=== PATIENT | female | born 1940 | race Caucasian/White ===

== ENCOUNTER 2016-12-14 12:30 | Emergency (ER) | payer OTHER, BC ==
[~2016-12-14] VITALS: Ht 152.4 cm; Wt 78.7 kg
[~2016-12-14 12:30] MED LIST: ACETAMINOPHEN325 M1 PO; ADULT LOW DOSE81 M1 PO; AFRIN15 ML BOTH NARES; ASPIR-LOW81 MG PO; B-COMPLEX-VITA1 EACH PO; BUSPAR5 MG PO; BUSPIRONE HCL5 MG PO; BYSTOLIC10 MG PO; CALCITRIOL0.5 MCG PO; CALCIUM ACETAT667 M2 PO; CALCIUM ACETAT667 MG PO; CALCIUM ACETAT668 MG PO; CLONIDINE HCL0.1 MG PO; CLOPIDOGREL75 MG PO; COLACE100 MG PO; DOCUSATE SODIU100 MG PO; DOXAZOSIN MESYLA1 MG PO; DOXYCYCLINE HY100 MG PO; FOLIC ACID1 MG PO; FOLVITE1 MG PO; KEFLEX250 MG PO; LANTUS 3 M100 UNITS1 SC; LANTUS 3 M100 UNITS1 SQ; LEVEMIR FL100 UNITS/ SC; LEVOTHYROXINE100 MCG PO; LEVOTHYROXINE150 MCG PO; LEVOXYL150 MCG PO; LISINOPRIL2.5 MG PO; LISINOPRIL5 MG PO; LO-DOSE ASPIRIN81 M1 PO; LOPRESSOR25 MG PO; LORAZEPAM0.5 MG PO; METOPROLOL TART25 MG PO; MIRALAX17 GM PO; MOTRIN600 MG PO; NITROSTAT0.4 MG SL; NORVASC10 MG PO; NOVOLOG PE100 UNITS/ SC; NOVOLOG PE100 UNITS/ SQ; OMEPRAZOLE20 MG PO; OXYCODONE-ACET1 EACH PO; PERCOCET 5/31 TABLET PO; PHOSLO667 M1 PO; PLAVIX75 MG PO; POLYETHYLENE GL17 GM PO; PRAVACHOL40 MG PO; PRAVASTATIN SOD40 MG PO; PROCRIT2000 UNIT/ IV; PROPOXYPHENE1 TABLET PO; PROSOURCE275 GM PO; RENA-VITE RX T1 EACH PO; RENVELA800 MG PO; SIMVASTATIN20 MG PO; ST. JOSEPH ASPI81 MG PO; SYNTHROID150 MCG PO; TRAMADOL HCL50 MG PO; TRAZODONE HCL50 MG PO; TRICOR48 MG PO; TYLENOL EXTRA500 MG PO; TYLENOL REGULA325 MG PO; TYLENOL WITH C1 EACH PO; VITAMIN D2000 UNIT PO; VITAMIN D31000 UNIT PO; ZESTRIL,PRINIVI40 MG PO; ZOCOR20 MG PO; [UNRECOGNIZED DRUG - CODE] PO
[2016-12-14 13:41] LABS: BASOPHIL COUNT 0.1 K/uL (0-0.1); EOSINOPHIL (%) 0.9 % (0-5); EOSINOPHIL COUNT 0.1 K/uL (0-0.3); IMMATURE GRANULOCYTE (%) 0.5 % (0.0-0.7); INSTRUMENT ABS NEUTROPHIL CT 4.3 K/uL; MCH 31.4 PG (29.0-34.0); MCHC 32.6 G/DL (30.0-36.0); MEAN PLAT.VOLUME 10.1 uM^3 (9.5-12.4); MONOCYTE COUNT 0.3 K/uL (0-0.8); NEUTROPHIL (%) 75.8 % (45-76); NEUTROPHIL COUNT 4.3 K/uL (1.8-6.4); PLATELET COUNT 98 K/uL (156-360); RBC DIS.WIDTH-CV 14.8 % (11.8-14.6); RBC DIS.WIDTH-SD 51.8 % (39-53); RED BLOOD COUNT 3.54 M/uL (3.80-5.20); WHITE BLOOD COUNT 5.6 K/uL (4.1-10.2)
[2016-12-14 13:49] LABS: CHLORIDE 98 mEq/L (99-109); POTASSIUM 3.9 mEq/L (3.7-5.4); SODIUM 137 mEq/L (136-147)
[2016-12-14 13:50] LABS: PROTHROMBIN TIME 10.4 (9.2-11.2); PTT 25.3 (25-32)
[2016-12-14 13:51] LABS: GLUCOSE 294 mg/dL (70-99)
[2016-12-14 13:52] LABS: ANION GAP 17 MEQ/L (2-14)
[2016-12-14 13:55] LABS: GFR ESTIMATE (CALCULATED) 6 mL/min/
[2016-12-14 13:56] LABS: UREA NITROGEN (BUN) 35 mg/dL (9-23)
[2016-12-14 14:02] LABS: TROP-I INTERPRETATION NEGATIVE; TROPONIN-I 0.11 ng/mL (0.0-0.30)
[2016-12-14 17:21] VITALS: BP 170/86
== END 2016-12-14 17:22 | disposition left against medical advice (07) ==
LOC: EME 12:30
PROVIDERS: Emergency Medicine
DX: R42 Dizziness and giddiness (principal); I12.9 Hypertensive chronic kidney disease with stage 1 through stage 4 chronic kidney disease, or unspecified chronic kidney disease; N18.9 Chronic kidney disease, unspecified; Z99.2 Dependence on renal dialysis; E11.22 Type 2 diabetes mellitus with diabetic chronic kidney disease; R55 Syncope and collapse; I50.9 Heart failure, unspecified; I25.2 Old myocardial infarction; G70.00 Myasthenia gravis without (acute) exacerbation; Z79.4 Long term (current) use of insulin; Z95.0 Presence of cardiac pacemaker; Z95.1 Presence of aortocoronary bypass graft; Z95.2 Presence of prosthetic heart valve; Z95.5 Presence of coronary angioplasty implant and graft
CPT/HCPCS: 71010; 80048; 84484; 85025; 85610; 85730; 93005; 99281; 99284; J2405

== ENCOUNTER 2016-12-29 10:24 | Emergency (ER) | payer OTHER, BC ==
[~2016-12-29] VITALS: Ht 152.4 cm; Wt 77.1 kg
[2016-12-29 11:19] LABS: EOSINOPHIL (%) 1.2 % (0-5); EOSINOPHIL COUNT 0.1 K/uL (0-0.3); IMMATURE GRANULOCYTE (%) 0.7 % (0.0-0.7); INSTRUMENT ABS NEUTROPHIL CT 3.6 K/uL; LYMPHOCYTE COUNT 1.1 K/uL (1.0-2.8); MCH 30.9 PG (29.0-34.0); MCHC 32.4 G/DL (30.0-36.0); MCV 95.4 FL (83-99); MEAN PLAT.VOLUME 10.4 uM^3 (9.5-12.4); MONOCYTE (%) 15.8 % (3-12); MONOCYTE COUNT 0.9 K/uL (0-0.8); NEUTROPHIL (%) 62.9 % (45-76); NEUTROPHIL COUNT 3.6 K/uL (1.8-6.4); RBC DIS.WIDTH-CV 15.6 % (11.8-14.6); RBC DIS.WIDTH-SD 53.7 % (39-53); RED BLOOD COUNT 3.04 M/uL (3.80-5.20); WHITE BLOOD COUNT 5.8 K/uL (4.1-10.2)
[2016-12-29 11:21] LABS: PLATELET COUNT 133 K/uL (156-360)
[2016-12-29 11:27] LABS: CHLORIDE 97 mEq/L (99-109); POTASSIUM 4.4 mEq/L (3.7-5.4); SODIUM 137 mEq/L (136-147)
[2016-12-29 11:28] LABS: GLUCOSE 119 mg/dL (70-99)
[2016-12-29 11:30] LABS: ANION GAP 17 MEQ/L (2-14)
[2016-12-29 11:32] LABS: GFR ESTIMATE (CALCULATED) 6 mL/min/
[2016-12-29 11:33] LABS: UREA NITROGEN (BUN) 33 mg/dL (9-23)
[2016-12-29] MEDS ORDERED: KEFLEX500 MG PO (14:40)
[2016-12-29] MEDS ORDERED: BACTRIM,SEPT1 TABLET PO (14:40)
[2016-12-29 15:06] VITALS: BP 125/85
== END 2016-12-29 15:07 | disposition home or self-care (01) ==
LOC: EME 10:24
DX: L03.113 Cellulitis of right upper limb (principal); I25.2 Old myocardial infarction; I10 Essential (primary) hypertension; E11.9 Type 2 diabetes mellitus without complications; Z95.1 Presence of aortocoronary bypass graft; Z79.4 Long term (current) use of insulin; Z79.82 Long term (current) use of aspirin
CPT/HCPCS: 76881; 80048; 81003; 83605; 85025; 99281; 99284

== ENCOUNTER 2017-01-01 12:25 | Day surgery (SDC) | payer OTHER, BC ==
[~2017-01-01] VITALS: Ht 152.4 cm; Wt 79.0 kg
[~2017-01-01 12:25] MED LIST changes: +BACTRIM,SEPT1 TABLET PO; +KEFLEX500 MG PO
[2017-01-01] MEDS ORDERED: LOPRESSOR25 MG PO (16:04)
[2017-01-01 16:23] LABS: CHLORIDE 94 mEq/L (99-109)
[2017-01-01 16:24] LABS: SODIUM 133 mEq/L (136-147)
[2017-01-01 16:26] LABS: GLUCOSE 69 mg/dL (70-99); HEMATOCRIT 28.5 % (36.0-46.0); MCH 31.4 PG (29.0-34.0); MCHC 33.3 G/DL (30.0-36.0); MCV 94.1 FL (83-99); MEAN PLAT.VOLUME 9.8 uM^3 (9.5-12.4); PLATELET COUNT 200 K/uL (156-360); RBC DIS.WIDTH-CV 15.4 % (11.8-14.6); RBC DIS.WIDTH-SD 52.5 % (39-53); RED BLOOD COUNT 3.03 M/uL (3.80-5.20); WHITE BLOOD COUNT 4.9 K/uL (4.1-10.2)
[2017-01-01 16:27] LABS: ANION GAP 19 MEQ/L (2-14)
[2017-01-01 16:28] LABS: TOTAL BILIRUBIN 0.4 mg/dL (0.0-1.0)
[2017-01-01 16:29] LABS: ALKALINE PHOSPHATASE 142 IU/L (3-129); GFR ESTIMATE (CALCULATED) 4 mL/min/
[2017-01-01 16:40] LABS: UREA NITROGEN (BUN) 54 mg/dL (9-23)
[2017-01-01] MEDS ORDERED: CILOSTAZOL50 MG PO (17:12)
[2017-01-01 21:06] LABS: POINT-OF-CARE METER ID UU13113675; POINT-OF-CARE USER ID ADMKMM76
[2017-01-01 21:51] VITALS: BP 139/64
[2017-01-02 00:56] VITALS: BP 103/51
[2017-01-02 03:16] VITALS: BP 110/52
[2017-01-02 07:28] VITALS: BP 117/53
[2017-01-02 09:32] LABS: EOSINOPHIL (%) 1.1 % (0-5); EOSINOPHIL COUNT 0.1 K/uL (0-0.3); HEMATOCRIT 22.4 % (36.0-46.0); IMMATURE GRANULOCYTE (%) 0.4 % (0.0-0.7); INSTRUMENT ABS NEUTROPHIL CT 3.3 K/uL; LYMPHOCYTE COUNT 0.9 K/uL (1.0-2.8); MCH 32.2 PG (29.0-34.0); MCHC 33.9 G/DL (30.0-36.0); MCV 94.9 FL (83-99); MEAN PLAT.VOLUME 9.6 uM^3 (9.5-12.4); MONOCYTE (%) 9.5 % (3-12); MONOCYTE COUNT 0.5 K/uL (0-0.8); NEUTROPHIL COUNT 3.3 K/uL (1.8-6.4); PLATELET COUNT 150 K/uL (156-360); RBC DIS.WIDTH-CV 15.8 % (11.8-14.6); RBC DIS.WIDTH-SD 54.1 % (39-53); WHITE BLOOD COUNT 4.7 K/uL (4.1-10.2)
[2017-01-02 09:43] LABS: ANION GAP 18 MEQ/L (2-14); CHLORIDE 96 MEQ/L (99-109); POTASSIUM 5.5 MEQ/L (3.7-5.4); SAMPLE HEMOLYSIS CHECK 0; SAMPLE ICTERIC CHECK 0; SAMPLE LIPEMIA CHECK 0; SODIUM 131 MEQ/L (136-147)
[2017-01-02 09:45] LABS: RED BLOOD COUNT 2.36 M/uL (3.80-5.20)
[2017-01-02 09:49] LABS: GFR ESTIMATE (CALCULATED) 3 mL/min/; GLUCOSE 114 mg/dL (70-99); UREA NITROGEN (BUN) 60 mg/dL (9-23)
[2017-01-02 13:49] VITALS: BP 93/53
[2017-01-02 15:23] LABS: TROP-I INTERPRETATION NEGATIVE; TROPONIN-I 0.24 ng/mL (0.0-0.30)
[2017-01-02 16:01] VITALS: BP 104/53
== END 2017-01-02 18:09 | disposition home or self-care (01) ==
LOC: RME 12:25 → EME 12:25 → RME 18:32 → SDC 18:32 → 2SOUTH 20:40 → 2EASTP 20:40
PROVIDERS: Internal Medicine Nephrology; Physician Assistant; Surgery
DX: T82.7XXA Infection and inflammatory reaction due to other cardiac and vascular devices, implants and grafts, initial encounter (principal); I13.2 Hypertensive heart and chronic kidney disease with heart failure and with stage 5 chronic kidney disease, or end stage renal disease; E11.22 Type 2 diabetes mellitus with diabetic chronic kidney disease; N18.6 End stage renal disease; I50.9 Heart failure, unspecified; Z99.2 Dependence on renal dialysis; Z95.2 Presence of prosthetic heart valve; I73.9 Peripheral vascular disease, unspecified; E78.5 Hyperlipidemia, unspecified; D64.89 Other specified anemias; I48.91 Unspecified atrial fibrillation; G70.00 Myasthenia gravis without (acute) exacerbation; D69.6 Thrombocytopenia, unspecified; I49.5 Sick sinus syndrome; Z86.14 Personal history of Methicillin resistant Staphylococcus aureus infection; Z83.3 Family history of diabetes mellitus; Z82.49 Family history of ischemic heart disease and other diseases of the circulatory system; Z84.1 Family history of disorders of kidney and ureter
CPT/HCPCS: 80053; 80069; 82948; 84484; 85025; 85027; 87040; 87070; 87075; 87077; 87147; 87186; 87205; 93005; 99281; 99285; C2628; G0257; G0378; J0690; J0881; J1644; J2720; J3370; J7040

== ENCOUNTER 2017-04-09 12:47 | Emergency (ER) | payer OTHER, BC ==
[~2017-04-09] VITALS: Ht 152.4 cm; Wt 71.4 kg
[~2017-04-09 12:47] MED LIST changes: +CILOSTAZOL50 MG PO
[2017-04-09 14:43] LABS: CHLORIDE 99 mEq/L (99-109); POTASSIUM 3.8 mEq/L (3.7-5.4); SODIUM 138 mEq/L (136-147)
[2017-04-09 14:44] LABS: GLUCOSE 44 mg/dL (70-99)
[2017-04-09 14:46] LABS: ANION GAP 19 MEQ/L (2-14)
[2017-04-09 14:48] LABS: GFR ESTIMATE (CALCULATED) 4 mL/min/
[2017-04-09 14:49] LABS: UREA NITROGEN (BUN) 47 mg/dL (9-23)
[2017-04-09 15:54] LABS: POINT-OF-CARE METER ID UU14100415
[2017-04-09 16:04] LABS: EOSINOPHIL (%) 0.4 % (0-5); EOSINOPHIL COUNT 0.1 K/uL (0-0.3); HEMATOCRIT 28.5 % (36.0-46.0); IMMATURE GRANULOCYTE (%) 0.3 % (0.0-0.7); INSTRUMENT ABS NEUTROPHIL CT 9.2 K/uL; LYMPHOCYTE COUNT 1.3 K/uL (1.0-2.8); MCH 32.4 PG (29.0-34.0); MCHC 32.6 G/DL (30.0-36.0); MCV 99.3 FL (83-99); MEAN PLAT.VOLUME 10.7 uM^3 (9.5-12.4); MONOCYTE COUNT 0.7 K/uL (0-0.8); NEUTROPHIL (%) 81.8 % (45-76); NEUTROPHIL COUNT 9.2 K/uL (1.8-6.4); PLATELET COUNT 84 K/uL (156-360); RBC DIS.WIDTH-CV 14.8 % (11.8-14.6); RBC DIS.WIDTH-SD 54.7 % (39-53); RED BLOOD COUNT 2.87 M/uL (3.80-5.20); WHITE BLOOD COUNT 11.2 K/uL (4.1-10.2)
[2017-04-09 17:00] VITALS: BP 155/57
== END 2017-04-09 17:18 | disposition home or self-care (01) ==
LOC: EME 12:47
PROVIDERS: Emergency Medicine
DX: T82.838A Hemorrhage due to vascular prosthetic devices, implants and grafts, initial encounter (principal); Y83.2 Surgical operation with anastomosis, bypass or graft as the cause of abnormal reaction of the patient, or of later complication, without mention of misadventure at the time of the procedure; D64.9 Anemia, unspecified; E11.649 Type 2 diabetes mellitus with hypoglycemia without coma; I12.9 Hypertensive chronic kidney disease with stage 1 through stage 4 chronic kidney disease, or unspecified chronic kidney disease; N18.9 Chronic kidney disease, unspecified; Z99.2 Dependence on renal dialysis; K21.9 Gastro-esophageal reflux disease without esophagitis; G70.00 Myasthenia gravis without (acute) exacerbation; I25.2 Old myocardial infarction; Z95.0 Presence of cardiac pacemaker; Z95.1 Presence of aortocoronary bypass graft; Z95.2 Presence of prosthetic heart valve; Z79.4 Long term (current) use of insulin; Z79.82 Long term (current) use of aspirin
CPT/HCPCS: 80048; 82948; 85025; 85027; 86850; 86900; 86901; 99281; 99285

== ENCOUNTER 2017-04-25 12:29 | Day surgery (SDC) | payer OTHER, BC ==
[~2017-04-25] VITALS: Ht 152.4 cm; Wt 72.0 kg
[~2017-04-25 12:29] MED LIST changes: +LEVAQUIN750 MG PO
[2017-04-25 13:28] VITALS: BP 109/55
[2017-04-25 13:45] LABS: HEMATOCRIT 23.6 % (36.0-46.0); MCH 32.9 PG (29.0-34.0); MCHC 31.8 G/DL (30.0-36.0); MEAN PLAT.VOLUME 9.8 uM^3 (9.5-12.4); NRBC (%) 0.3 /100 WBC (0-0); RBC DIS.WIDTH-CV 18.2 % (11.8-14.6); RBC DIS.WIDTH-SD 66.8 % (39-53); WHITE BLOOD COUNT 9.5 K/uL (4.1-10.2)
[2017-04-25 13:53] LABS: CHLORIDE 99 mEq/L (99-109); SODIUM 138 mEq/L (136-147)
[2017-04-25 13:54] LABS: GLUCOSE 47 mg/dL (70-99); MCV 103.5 FL (83-99); PLATELET COUNT 210 K/uL (156-360); RED BLOOD COUNT 2.28 M/uL (3.80-5.20)
[2017-04-25 13:56] LABS: ANION GAP 20 MEQ/L (2-14)
[2017-04-25 13:58] LABS: GFR ESTIMATE (CALCULATED) 4 mL/min/
[2017-04-25 13:59] LABS: UREA NITROGEN (BUN) 54 mg/dL (9-23)
[2017-04-25 16:24] LABS: POINT-OF-CARE METER ID UU13113675
[2017-04-25 17:51] VITALS: BP 116/58
[2017-04-25 19:08] VITALS: BP 110/56
[2017-04-27] MEDS ORDERED: CLARITIN,ALAVAR10 MG PO (14:48)
[2017-04-27] MEDS ORDERED: BACTROBAN OINTM22 GM TP (14:48)
== END 2017-04-25 19:11 | disposition home or self-care (01) ==
LOC: SDC 12:29
PROVIDERS: Surgery
PROC: 05WY0JZ Revision of Synthetic Substitute in Upper Vein, Open Approach (ICD-10-PCS; principal; 2017-04-25)
DX: T82.41XA Breakdown (mechanical) of vascular dialysis catheter, initial encounter (principal); I12.0 Hypertensive chronic kidney disease with stage 5 chronic kidney disease or end stage renal disease; E11.22 Type 2 diabetes mellitus with diabetic chronic kidney disease; N18.6 End stage renal disease; Z99.2 Dependence on renal dialysis; E78.00 Pure hypercholesterolemia, unspecified; L03.116 Cellulitis of left lower limb; I73.9 Peripheral vascular disease, unspecified; Z79.02 Long term (current) use of antithrombotics/antiplatelets; R94.31 Abnormal electrocardiogram [ECG] [EKG]
CPT/HCPCS: 80048; 82948; 85027; 86850; 86900; 86901; 86920; 93005; C1768; C2628; J1644; J2250; J2720; J3010; P9016